=== PATIENT | male | born 1965 | race Asian ===

== ENCOUNTER 2017-05-17 17:57 | Emergency (ER) | payer OTHER ==
[~2017-05-17] VITALS: Ht 180.3 cm; Wt 80.7 kg
[2017-05-17 18:41] LABS: BASOPHILS % 0.4 % (0.0-1.0); EOSINOPHILS # (AUTO) 0.3 (0.0-0.4); EOSINOPHILS % 3.9 % (0.0-6.0); HEMATOCRIT 44.7 % (38.2-49.6); HEMOGLOBIN 15.6 g/dL (14.0-18.0); LYMPHOCYTES # (AUTO) 1.3 (1.0-3.2); LYMPHOCYTES % 16.1 % (18.0-39.1); MEAN CORPUSCULAR HEMOGLOBIN 30.8 pg (28-32); MEAN CORPUSCULAR HGB CONC 34.9 g/dL (31-35); MEAN CORPUSCULAR VOLUME 88.2 fL (81-99); MONOCYTES # (AUTO) 0.4 (0.2-0.8); MONOCYTES % 5.2 % (4.4-11.3); NEUTROPHILS # (AUTO) 6.1 (2.1-6.9); NEUTROPHILS % 74.3 % (38.7-80.0); PLATELET COUNT 165 x10e3/uL (140-360); RED BLOOD COUNT 5.07 x10e6/uL (4.3-5.7); RED CELL DISTRIBUTION WIDTH 12.2 % (11.7-14.4)
[2017-05-17 18:54] LABS: AMYLASE 72 U/L (25-125); LIPASE 65 U/L (8-78)
[2017-05-17 19:05] LABS: ALBUMIN/GLOBULIN RATIO 1.2 (0.8-2.0); ANION GAP 14.5 mmol/L (8-16); CALCIUM 9.3 mg/dL (8.4-10.2); CREATININE, SERUM 1.43 mg/dL (0.72-1.25); POTASSIUM 4.5 mmol/L (3.5-5.1)
[2017-05-17 20:07] LABS: BILIRUBIN,URINE NEGATIVE (NEGATIVE); CLARITY,URINE CLEAR (CLEAR); COLOR,URINE YELLOW (YELLOW); KETONES,URINE NEGATIVE (NEGATIVE); LEUKOCYTE ESTERASE ,URINE NEGATIVE (NEGATIVE); NITRITE,URINE NEGATIVE (NEGATIVE); PROTEIN,URINE DIPSTICK 3+ (NEGATIVE); URINE UROBILINOGEN 0.2 mg/dL (0.2 - 1)
[2017-05-17] MEDS ORDERED: SODIUM CHLORIDE 0.9% 1000ML 1,000 ML IV STA (20:08)
[2017-05-17] MEDS ORDERED: ONDANSETRON HCL INJ 2 MG/ML VIAL IV STA (20:08)
[2017-05-17] MEDS ORDERED: KETOROLAC TROMETHAMINE 30 MG/ML VIAL IV STA (20:08)
[2017-05-17 20:14] LABS: MUCUS,URINE MODERATE (RARE); RBC,URINE 0-5 /HPF (0-5); WBC,URINE (MAN) 0-5 /HPF (0-5)
[2017-05-17] MEDS ORDERED: LISINOPRIL 20 MG TAB PO ONE (21:30)
--- NOTE | 2017-05-17 21:59 | Diagnostic Imaging Report ---
EXAM: CT Abdomen and Pelvis WITHOUT contrast INDICATION: Renal stones COMPARISON: None. TECHNIQUE: Abdomen and pelvis were scanned utilizing a multidetector helical scanner from the lung base to the pubic symphysis without administration of IV contrast. Absence of intravenous contrast decreases sensitivity for detection of focal lesions and vascular pathology. Coronal and sagittal reformations were obtained. Stone protocol is performed. IV CONTRAST: None. ORAL CONTRAST: Water RADIATION DOSE: Total DLP: 403.36 mGy*cm Estimated effective dose: (DLP x 0.015 x size factor) mSv COMPLICATIONS: None FINDINGS: LINES and TUBES: None. LOWER THORAX: Unremarkable HEPATOBILIARY: No focal hepatic lesions. No biliary ductal dilation. GALLBLADDER: No radio-opaque stones or sludge. No wall thickening. SPLEEN: No splenomegaly. PANCREAS: No focal masses or ductal dilatation. ADRENALS: No adrenal nodules KIDNEYS/URETERS: No hydronephrosis. No cystic or solid mass lesions. Right-sided 3 mm nephrolithiasis in the inferior renal collecting system best seen on series 3, image 76 GI TRACT: No abnormal distention, wall thickening, or evidence of bowel obstruction. Appendix is normal. PELVIC ORGANS/BLADDER: Unremarkable. LYMPH NODES: No lymphadenopathy. VESSELS: There is mild atherosclerotic disease in the aorta and major arterial branches. PERITONEUM / RETROPERITONEUM: No free air or fluid. BONES: There are degenerative changes in the lumbar spine. SOFT TISSUES: Unremarkable. IMPRESSION: 1. Right sided 3 mm nephrolithiasis without hydronephrosis. Signed by: Dr. Nigel Valentin M.D. on 05/17/2017 9:55 PM
[2017-05-17] MEDS ORDERED: ULTRAM 50MG50 MG PO (22:12)
[2017-05-17] MEDS ORDERED: ZOFRAN ODT4 MG SL (22:12)
[2017-05-17 22:38] VITALS: BP 155/104
[2017-05-20] MEDS ORDERED: FENTANYL CITRATE/PF 100MCG/2 ML INJ ONE (17:07)
[2017-05-20] MEDS ORDERED: MIDAZOLAM HCL 2 MG/2 ML VIAL ONE (17:07)
== END 2017-05-17 22:44 | disposition home or self-care (01) ==
LOC: ER 17:57
DX: R10.31 Right lower quadrant pain (principal); I10 Essential (primary) hypertension; E11.9 Type 2 diabetes mellitus without complications; Z87.442 Personal history of urinary calculi
CPT/HCPCS: 36415; 74176; 80053; 81001; 82150; 83690; 85025; 87086; 99284; J1885; J2250; J2405; J7030

== ENCOUNTER 2021-07-08 15:22 | Inpatient (IN) | payer OTHER ==
[~2021-07-08] VITALS: Ht 175.3 cm; Wt 91.6 kg
[~2021-07-08 15:22] MED LIST: ULTRAM 50MG50 MG PO; ZOFRAN ODT4 MG SL
[2021-07-08 16:05] LABS: BASOPHILS % 0.6 % (0.0-1.0); EOSINOPHILS # (AUTO) 1.5 (0.0-0.4); EOSINOPHILS % 22.7 % (0.0-6.0); HEMATOCRIT 36.9 % (38.2-49.6); HEMOGLOBIN 12.2 g/dL (14.0-18.0); LYMPHOCYTES # (AUTO) 1.2 (1.0-3.2); LYMPHOCYTES % 17.6 % (18.0-39.1); MEAN CORPUSCULAR HEMOGLOBIN 29.5 pg (28-32); MEAN CORPUSCULAR HGB CONC 33.1 g/dL (31-35); MEAN CORPUSCULAR VOLUME 89.3 fL (81-99); MONOCYTES # (AUTO) 0.5 (0.2-0.8); MONOCYTES % 6.9 % (4.4-11.3); NEUTROPHILS # (AUTO) 3.5 (2.1-6.9); NEUTROPHILS % 52.1 % (38.7-80.0); PLATELET COUNT 200 x10e3/uL (140-360); RED BLOOD COUNT 4.13 x10e6/uL (4.3-5.7); RED CELL DISTRIBUTION WIDTH 12.6 % (11.7-14.4)
[2021-07-08 16:11] LABS: INR 0.87; PARTIAL THROMBOPLASTIN TIME 29.8 seconds (23.8-35.5); PROTHROMBIN TIME 12.7 seconds (11.9-14.5)
[2021-07-08 16:14] LABS: CLARITY,URINE HAZY (CLEAR); COLOR,URINE YELLOW (YELLOW)
[2021-07-08 16:15] LABS: KETONES,URINE NEGATIVE (NEGATIVE); LEUKOCYTE ESTERASE ,URINE NEGATIVE (NEGATIVE); NITRITE,URINE NEGATIVE (NEGATIVE); PROTEIN,URINE DIPSTICK >=300 (NEGATIVE); URINE UROBILINOGEN 0.2 mg/dL (0.2 - 1)
[2021-07-08 16:16] LABS: AMORPHOUS SEDIMENT,URINE FEW (FEW); BACTERIA,URINE FEW /HPF; EPITHELIAL CELLS,URINE FEW /LPF; MUCUS,URINE FEW (RARE)
[2021-07-08 16:23] LABS: ALBUMIN 3.2 g/dL (3.5-5.0); ALBUMIN/GLOBULIN RATIO 0.8 (0.8-2.0); ANION GAP 12.1 mmol/L (8-16); CALCIUM 8.9 mg/dL (8.4-10.2); CREATININE, SERUM 3.07 mg/dL (0.72-1.25); MAGNESIUM 1.9 MG/DL (1.3-2.1); POTASSIUM 5.1 mmol/L (3.5-5.1)
[2021-07-08 16:31] LABS: CREATINE KINASE MB 5.8 ng/mL (0-5.0)
[2021-07-08 16:32] LABS: EOSINOPHILS % (MANUAL) 21 % (0-7); LYMPHOCYTES % (MANUAL) 17 % (19-48); MONOCYTES % (MANUAL) 4 % (3.4-9.0); NEUTROPHILS % (MANUAL) 58 % (40-74); PLATELET ESTIMATE ADEQUATE; PLATELET MORPHOLOGY COMMENT NORMAL
[2021-07-08 16:33] LABS: RBC MORPHOLOGY COMMENT NORMAL
[2021-07-08] MEDS ORDERED: ONDANSETRON HCL INJ 2MG/ML 2ML 2 MG/ML VIAL IV PRN (17:00)
[2021-07-08] MEDS ORDERED: FUROSEMIDE INJ 10 MG/ML 4 ML VIAL IV ONE (17:30)
[2021-07-08 18:20] VITALS: BP 138/83
[2021-07-08 19:38] LABS: CREATINE KINASE MB 5.9 ng/mL (0-5.0)
[2021-07-08 20:00] VITALS: BP 128/87
[2021-07-08] MEDS ORDERED: LASIX20 MG PO (22:18)
[2021-07-08] MEDS ORDERED: HUMULIN R100 UNIT/2 SC (22:21)
[2021-07-08] MEDS ORDERED: LISINOPRIL20 MG PO (22:21)
[2021-07-08] MEDS ORDERED: HUMULIN N100 UNITS/ SC (22:21)
[2021-07-08] MEDS ORDERED: ASPIRIN81 MG PO (22:21)
[2021-07-08] MEDS ORDERED: LABETALOL HCL100 MG PO (22:21)
[2021-07-09] VITALS (8 sets, daily range): BP systolic 117–140; BP diastolic 74–89
[2021-07-09] MEDS ORDERED: ACETAMINOPHEN 325 MG TAB PO PRN ×2 (00:30→10:00)
[2021-07-09] MEDS ORDERED: DIPHENHYDRAMINE HCL 25 MG CAP PO PRN (00:30)
[2021-07-09 05:16] LABS: BASOPHILS # (AUTO) 0.1 (0.0-0.1); BASOPHILS % 0.7 % (0.0-1.0); EOSINOPHILS # (AUTO) 1.5 (0.0-0.4); EOSINOPHILS % 20.6 % (0.0-6.0); HEMOGLOBIN 12.2 g/dL (14.0-18.0); LYMPHOCYTES # (AUTO) 1.9 (1.0-3.2); LYMPHOCYTES % 26.1 % (18.0-39.1); MEAN CORPUSCULAR HEMOGLOBIN 29.8 pg (28-32); MEAN CORPUSCULAR VOLUME 90.5 fL (81-99); MONOCYTES # (AUTO) 0.6 (0.2-0.8); MONOCYTES % 8.2 % (4.4-11.3); NEUTROPHILS # (AUTO) 3.2 (2.1-6.9); NEUTROPHILS % 44.3 % (38.7-80.0); PLATELET COUNT 210 x10e3/uL (140-360); RED BLOOD COUNT 4.09 x10e6/uL (4.3-5.7); RED CELL DISTRIBUTION WIDTH 12.6 % (11.7-14.4)
[2021-07-09 05:37] LABS: CREATINE KINASE MB 4.9 ng/mL (0-5.0)
[2021-07-09 05:52] LABS: ALBUMIN 3.2 g/dL (3.5-5.0); ALBUMIN/GLOBULIN RATIO 0.8 (0.8-2.0); CALCIUM 9.2 mg/dL (8.4-10.2); CHOL/HDL RATIO 3.9 (3.9-4.7); CREATININE, SERUM 2.99 mg/dL (0.72-1.25)
[2021-07-09] MEDS ORDERED: SODIUM CHLORIDE 0.9% 250ML 250 ML ONE (09:01)
[2021-07-09] MEDS ORDERED: DOCUSATE SODIUM 100 MG CAP PO PRN (10:00)
[2021-07-09] MEDS: NPH, HUMAN INSULIN ISOPHANE 100 UNIT/1 ML 3ML VIAL SQ SCH ×2 (11:30→16:30)
[2021-07-09] MEDS: TRAMADOL HCL 50 MG TAB PO PRN (12:05)
[2021-07-09] MEDS: BENZONATATE 100 MG CAP PO SCH ×2 (15:00→21:00)
[2021-07-09 15:27] LABS: CREATINE KINASE MB 4.6 ng/mL (0-5.0)
[2021-07-09] MEDS: FAMOTIDINE 20 MG TAB PO SCH (16:30)
[2021-07-09] MEDS: LABETALOL HCL 100 MG TAB PO SCH (16:56)
[2021-07-09] MEDS: HEPARIN SOD (PORCINE) 5,000 UNIT/ML VIAL SC SCH (21:00)
[2021-07-09] MEDS ORDERED: DEXTROSE 50% SYRINGE 50 ML IV PRN (21:30)
[2021-07-09] MEDS: INSULIN REGULAR, HUMAN 100 UNIT/1 ML SQ SCH (21:48)
[2021-07-10] VITALS (9 sets, daily range): BP systolic 130–155; BP diastolic 68–100
[2021-07-10] MEDS: TRAMADOL HCL 50 MG TAB PO PRN
[2021-07-10] MEDS: FAMOTIDINE 20 MG TAB PO SCH ×2 (09:28→16:46)
[2021-07-10] MEDS: NPH, HUMAN INSULIN ISOPHANE 100 UNIT/1 ML 3ML VIAL SQ SCH ×3 (09:30→16:30)
[2021-07-10] MEDS: INSULIN REGULAR, HUMAN 100 UNIT/1 ML SQ SCH ×4 (09:30→20:47)
[2021-07-10] MEDS: BENZONATATE 100 MG CAP PO SCH ×3 (09:31→20:45)
[2021-07-10] MEDS: ASPIRIN 81 MG CHEW TAB PO SCH (09:31)
[2021-07-10] MEDS: LABETALOL HCL 100 MG TAB PO SCH ×2 (09:31→17:00)
[2021-07-10] MEDS: HEPARIN SOD (PORCINE) 5,000 UNIT/ML VIAL SC SCH ×2 (09:32→20:47)
[2021-07-10 16:05] LABS: BASOPHILS % 0.6 % (0.0-1.0); EOSINOPHILS # (AUTO) 1.4 (0.0-0.4); HEMATOCRIT 36.5 % (38.2-49.6); HEMOGLOBIN 11.7 g/dL (14.0-18.0); LYMPHOCYTES # (AUTO) 1.6 (1.0-3.2); LYMPHOCYTES % 25.8 % (18.0-39.1); MEAN CORPUSCULAR HEMOGLOBIN 29.4 pg (28-32); MEAN CORPUSCULAR HGB CONC 32.1 g/dL (31-35); MEAN CORPUSCULAR VOLUME 91.7 fL (81-99); MONOCYTES # (AUTO) 0.5 (0.2-0.8); MONOCYTES % 7.8 % (4.4-11.3); NEUTROPHILS # (AUTO) 2.8 (2.1-6.9); NEUTROPHILS % 43.6 % (38.7-80.0); PLATELET COUNT 184 x10e3/uL (140-360); RED BLOOD COUNT 3.98 x10e6/uL (4.3-5.7); RED CELL DISTRIBUTION WIDTH 12.7 % (11.7-14.4)
[2021-07-10 16:23] LABS: CALCIUM 8.9 mg/dL (8.4-10.2); CREATININE, SERUM 2.89 mg/dL (0.72-1.25)
[2021-07-10] MEDS: METHYLPREDNISOLONE SOD SUCC 40 MG/ML VIAL 1ML IV SCH (17:30)
[2021-07-10] MEDS: CEFTRIAXONE 1 GM in SODIUM CHLORIDE 0.9% 50ML 50 ML IV SCH (18:00)
[2021-07-10] MEDS: ALBUTEROL/IPRATROPIUM 3 ML NEB NEB SCH (19:28)
[2021-07-11] VITALS (7 sets, daily range): BP systolic 131–162; BP diastolic 74–92
[2021-07-11] MEDS: ALBUTEROL/IPRATROPIUM 3 ML NEB NEB SCH ×4 (00:12→18:35)
[2021-07-11] MEDS: TRAMADOL HCL 50 MG TAB PO PRN (00:49)
[2021-07-11 05:18] LABS: ALBUMIN 3.1 g/dL (3.5-5.0); ALBUMIN/GLOBULIN RATIO 0.8 (0.8-2.0); ANION GAP 12.9 mmol/L (8-16); CALCIUM 9.4 mg/dL (8.4-10.2); CREATININE, SERUM 3.14 mg/dL (0.72-1.25); POTASSIUM 4.9 mmol/L (3.5-5.1)
[2021-07-11] MEDS: METHYLPREDNISOLONE SOD SUCC 40 MG/ML VIAL 1ML IV SCH ×2 (05:52→17:34)
[2021-07-11 07:30] LABS: CREATININE,URINE RANDOM 42.21 mg/dL (63-166)
[2021-07-11 07:32] LABS: TOTAL PROTEIN, URINE 213.7 mg/dL (1-14)
[2021-07-11] MEDS: BENZONATATE 100 MG CAP PO SCH ×3 (07:53→20:37)
[2021-07-11] MEDS: FAMOTIDINE 20 MG TAB PO SCH ×2 (07:53→17:33)
[2021-07-11] MEDS: ASPIRIN 81 MG CHEW TAB PO SCH (07:53)
[2021-07-11] MEDS: NPH, HUMAN INSULIN ISOPHANE 100 UNIT/1 ML 3ML VIAL SQ SCH ×3 (08:14→16:42)
[2021-07-11] MEDS: INSULIN REGULAR, HUMAN 100 UNIT/1 ML SQ SCH ×3 (08:14→16:42)
[2021-07-11] MEDS: LABETALOL HCL 100 MG TAB PO SCH ×2 (08:14→17:34)
[2021-07-11] MEDS: HEPARIN SOD (PORCINE) 5,000 UNIT/ML VIAL SC SCH (08:15)
[2021-07-11] MEDS ORDERED: AZITHROMYCIN 250 MG TAB PO SCH (09:00)
[2021-07-11] MEDS: CEFTRIAXONE 1 GM in SODIUM CHLORIDE 0.9% 50ML 50 ML IV SCH (17:34)
[2021-07-11] MEDS ORDERED: CEPHALEXIN500 MG PO (20:08)
[2021-07-11] MEDS ORDERED: PREDNISONE20 MG PO (20:08)
[2021-07-11] MEDS ORDERED: Benzonatate PO (20:08)
[2021-07-11] MEDS ORDERED: ZITHROMAX500 MG PO (20:08)
== END 2021-07-11 21:09 | disposition home or self-care (01) | DRG 202 ==
LOC: ER 15:54 → ERHOLD 16:54 → MED/SURG2 18:06
PROVIDERS: ADMIT Internal Medicine; ATTEND Internal Medicine
DX: J20.9 Acute bronchitis, unspecified (principal); N17.0 Acute kidney failure with tubular necrosis; N18.4 Chronic kidney disease, stage 4 (severe); N17.9 Acute kidney failure, unspecified; I73.9 Peripheral vascular disease, unspecified; Z87.891 Personal history of nicotine dependence; E11.22 Type 2 diabetes mellitus with diabetic chronic kidney disease; I12.9 Hypertensive chronic kidney disease with stage 1 through stage 4 chronic kidney disease, or unspecified chronic kidney disease; Z79.899 Other long term (current) drug therapy; Z20.822 Contact with and (suspected) exposure to COVID-19
CPT/HCPCS: 36415; 71045; 80048; 80053; 80061; 81001; 82550; 82553; 82570; 82948; 83036; 83735; 83880; 83970; 84100; 84156; 84484; 84550; 85025; 85610; 85730; 93005; 93306; 94799; 99284; J0456; J0696; J1644; J1817; J1940; J2920; J7050; U0002

== ENCOUNTER 2022-08-07 07:55 | Inpatient (IN) | payer MEDICARE, OTHER ==
[~2022-08-07] VITALS: Ht 175.3 cm; Wt 91.6 kg
[~2022-08-07 07:55] MED LIST changes: +ASPIRIN81 MG PO; +Benzonatate PO; +CEPHALEXIN500 MG PO; +HUMULIN N100 UNITS/ SC; +HUMULIN R100 UNIT/2 SC; +LABETALOL HCL100 MG PO; +LASIX20 MG PO; +LISINOPRIL20 MG PO; +PREDNISONE20 MG PO; +ZITHROMAX500 MG PO
[2022-08-07] MEDS ORDERED: SODIUM CHLORIDE 0.9% 1000ML 2,650 ML IV SCH (08:45)
[2022-08-07] MEDS ORDERED: PIPERACILLIN/TAZOBACTAM 4.5 GM in SODIUM CHLORIDE 0.9% 100 ML IV ONE (08:45)
[2022-08-07] MEDS ORDERED: ACETAMINOPHEN 325 MG TAB PO ONE (08:45)
[2022-08-07] MEDS ORDERED: HYDRALAZINE HCL 25 MG TAB PO ONE (09:00)
[2022-08-07] MEDS ORDERED: LABETALOL HCL 100 MG TAB PO ONE (09:00)
[2022-08-07 09:09] LABS: BASOPHILS # (AUTO) 0.1 (0.0-0.1); BASOPHILS % 0.4 % (0.0-1.0); EOSINOPHILS # (AUTO) 0.1 (0.0-0.4); EOSINOPHILS % 0.5 % (0.0-6.0); HEMATOCRIT 34.7 % (38.2-49.6); HEMOGLOBIN 11.1 g/dL (14.0-18.0); LYMPHOCYTES # (AUTO) 0.8 (1.0-3.2); LYMPHOCYTES % 6.1 % (18.0-39.1); MEAN CORPUSCULAR HEMOGLOBIN 28.2 pg (28-32); MEAN CORPUSCULAR VOLUME 88.1 fL (81-99); MONOCYTES % 7.8 % (4.4-11.3); NEUTROPHILS # (AUTO) 11.2 (2.1-6.9); NEUTROPHILS % 84.7 % (38.7-80.0); PLATELET COUNT 160 x10e3/uL (140-360); RED BLOOD COUNT 3.94 x10e6/uL (4.3-5.7); RED CELL DISTRIBUTION WIDTH 12.7 % (11.7-14.4)
[2022-08-07 09:25] LABS: INR 1.09; PROTHROMBIN TIME 14.6 seconds (11.9-14.5)
[2022-08-07 09:26] LABS: PARTIAL THROMBOPLASTIN TIME 40.8 seconds (23.8-35.5)
[2022-08-07] MEDS ORDERED: ONDANSETRON HCL INJ 2MG/ML 2ML 2 MG/ML VIAL ONE (09:31)
[2022-08-07] MEDS ORDERED: ONDANSETRON HCL INJ 2MG/ML 2ML 2 MG/ML VIAL IV STA (09:31)
[2022-08-07 09:34] LABS: ALBUMIN 2.8 g/dL (3.5-5.0); ALBUMIN/GLOBULIN RATIO 0.6 (0.8-2.0); ANION GAP 16.9 mmol/L (8-16); CALCIUM 8.9 mg/dL (8.4-10.2); CREATININE, SERUM 3.85 mg/dL (0.72-1.25); POTASSIUM 3.9 mmol/L (3.5-5.1)
[2022-08-07] MEDS: VANCOMYCIN 300 ML IV SCH ×2 (09:38→23:02)
[2022-08-07] MEDS ORDERED: SODIUM CHLORIDE FLUSH 10 ML SYR INJ PRN (10:15)
[2022-08-07] MEDS ORDERED: HYDROCODONE/APAP 5MG-325MG TAB PO PRN ×2 (14:00→21:00)
[2022-08-07] MEDS: ONDANSETRON HCL INJ 2MG/ML 2ML 2 MG/ML VIAL IV PRN (16:52)
[2022-08-07 18:00] VITALS: BP 140/91
[2022-08-07 18:15] VITALS: BP 140/91
[2022-08-07] MEDS ORDERED: FISH OIL 1,0001 EAC7 PO (18:26)
[2022-08-07] MEDS ORDERED: GLYBURIDE5 MG PO (18:26)
[2022-08-07] MEDS ORDERED: PANTOPRAZOLE SO40 MG PO (18:26)
[2022-08-07] MEDS ORDERED: SODIUM BICARBO325 MG PO (18:26)
[2022-08-07] MEDS ORDERED: CALCITRIOL0.5 MCG PO (18:26)
[2022-08-07] MEDS ORDERED: NIACIN100 MG PO (18:26)
[2022-08-07] MEDS ORDERED: HYDRALAZINE HCL50 MG PO (18:26)
[2022-08-07] MEDS ORDERED: LINZESS145 MCG PO (18:26)
[2022-08-07] MEDS ORDERED: FOLIC ACID0.4 MG PO (18:26)
[2022-08-07] MEDS ORDERED: GABAPENTIN300 MG PO (18:26)
[2022-08-07] MEDS ORDERED: ATORVASTATIN CA40 MG PO (18:26)
[2022-08-07] MEDS ORDERED: LEFLUNOMIDE20 MG PO (18:26)
[2022-08-07] MEDS ORDERED: HUMALOG MI100 UNIT/2 SQ (18:28)
[2022-08-07] MEDS ORDERED: Vancomycin IV 1 GM VIAL ONE (22:00)
[2022-08-07] MEDS ORDERED: SODIUM CHLORIDE 0.9% 250ML 250 ML ONE (22:00)
[2022-08-07] MEDS ORDERED: DEXTROSE 50% SYRINGE 50 ML IV PRN (23:30)
[2022-08-07] MEDS: INSULIN LISPRO 100 UNIT/1 ML 3ML VIAL SQ SCH (23:30)
[2022-08-08] VITALS (7 sets, daily range): BP systolic 102–163; BP diastolic 62–91
[2022-08-08] MEDS: HYDROCODONE/APAP 10MG-325MG TAB PO PRN ×3 (05:56→21:27)
[2022-08-08 05:58] LABS: BASOPHILS # (AUTO) 0.1 (0.0-0.1); BASOPHILS % 0.4 % (0.0-1.0); EOSINOPHILS # (AUTO) 0.1 (0.0-0.4); EOSINOPHILS % 0.7 % (0.0-6.0); HEMATOCRIT 32.9 % (38.2-49.6); HEMOGLOBIN 10.7 g/dL (14.0-18.0); LYMPHOCYTES # (AUTO) 0.9 (1.0-3.2); LYMPHOCYTES % 7.1 % (18.0-39.1); MEAN CORPUSCULAR HEMOGLOBIN 28.2 pg (28-32); MEAN CORPUSCULAR HGB CONC 32.5 g/dL (31-35); MEAN CORPUSCULAR VOLUME 86.6 fL (81-99); MONOCYTES # (AUTO) 1.3 (0.2-0.8); MONOCYTES % 10.5 % (4.4-11.3); NEUTROPHILS # (AUTO) 9.7 (2.1-6.9); NEUTROPHILS % 80.8 % (38.7-80.0); PLATELET COUNT 175 x10e3/uL (140-360); RED CELL DISTRIBUTION WIDTH 12.8 % (11.7-14.4)
[2022-08-08 06:26] LABS: ALBUMIN 2.8 g/dL (3.5-5.0); ALBUMIN/GLOBULIN RATIO 0.6 (0.8-2.0); ANION GAP 17.7 mmol/L (8-16); CALCIUM 8.9 mg/dL (8.4-10.2); CREATININE, SERUM 3.98 mg/dL (0.72-1.25); POTASSIUM 3.7 mmol/L (3.5-5.1)
[2022-08-08] MEDS: INS LISP PRO/LISP HUMAN 75/25 100 UNITS/ML VIAL SC SCH ×2 (07:30→16:30)
[2022-08-08] MEDS: INSULIN LISPRO 100 UNIT/1 ML 3ML VIAL SQ SCH ×4 (07:30→21:00)
[2022-08-08] MEDS ORDERED: NON-FORMULARY MEDICATION (Leflunomide 20 MG) PO SCH (09:00)
[2022-08-08] MEDS ORDERED: GLYBURIDE 5 MG TAB PO SCH (09:00)
[2022-08-08] MEDS ORDERED: SODIUM BICARBONATE 650 MG TAB PO SCH (09:00)
[2022-08-08] MEDS: NIACIN 100 MG TAB PO SCH (09:00)
[2022-08-08] MEDS: LINACLOTIDE 145 MCG CAPSULE PO SCH (09:00)
[2022-08-08] MEDS ORDERED: CALCITRIOL 0.5 MCG CAP PO SCH (09:00)
[2022-08-08] MEDS: HYDRALAZINE HCL 25 MG TAB PO SCH ×2 (09:00→15:00)
[2022-08-08] MEDS: ASPIRIN 81 MG CHEW TAB PO SCH (09:21)
[2022-08-08] MEDS: OMEGA 3 POLYUNSAT FATTY ACIDS 1000 MG SOFTGEL PO SCH (09:21)
[2022-08-08] MEDS: GABAPENTIN 300 MG CAP PO SCH ×2 (09:21→17:15)
[2022-08-08] MEDS: CALCITRIOL 0.25 MCG CAP PO SCH (09:23)
[2022-08-08] MEDS: FOLIC ACID 1 MG TAB PO SCH (09:23)
[2022-08-08] MEDS: PANTOPRAZOLE SOD 40 MG TABEC PO SCH (09:24)
[2022-08-08] MEDS: SODIUM BICARBONATE 8.4% 150 ML in STERILE WATER IV SOLN 1,000 ML IV SCH (12:00)
[2022-08-08] MEDS: ACETAMINOPHEN 325 MG TAB PO PRN ×2 (12:25→21:25)
[2022-08-08] MEDS: ONDANSETRON HCL INJ 2MG/ML 2ML 2 MG/ML VIAL IV PRN (12:26)
[2022-08-08] MEDS: LABETALOL HCL 100 MG TAB PO SCH ×2 (12:28→17:00)
[2022-08-08] MEDS: SODIUM BICARBONATE 650 MG TAB PO SCH ×2 (16:03→21:13)
[2022-08-08] MEDS ORDERED: SODIUM CHLORIDE 0.9% 1000ML 1,000 ML IV ONE (17:30)
[2022-08-08] MEDS: ATORVASTATIN 40 MG TAB PO SCH (21:14)
[2022-08-09] VITALS (8 sets, daily range): BP systolic 116–189; BP diastolic 67–98
[2022-08-09] MEDS ORDERED: CLINDAMYCIN 600MG / 50ML 50 ML IV ONE (00:45)
[2022-08-09] MEDS: SODIUM BICARBONATE 8.4% 150 ML in STERILE WATER IV SOLN 1,000 ML IV SCH (02:12)
[2022-08-09] MEDS: CLINDAMYCIN 600MG / 50ML 50 ML IV SCH ×3 (05:16→20:46)
[2022-08-09 05:35] LABS: ALBUMIN 2.3 g/dL (3.5-5.0); ALBUMIN/GLOBULIN RATIO 0.5 (0.8-2.0); ANION GAP 19.3 mmol/L (8-16); CALCIUM 8.4 mg/dL (8.4-10.2); CREATININE, SERUM 4.21 mg/dL (0.72-1.25); POTASSIUM 3.3 mmol/L (3.5-5.1)
[2022-08-09] MEDS: INSULIN LISPRO 100 UNIT/1 ML 3ML VIAL SQ SCH ×4 (07:30→20:45)
[2022-08-09] MEDS: INS LISP PRO/LISP HUMAN 75/25 100 UNITS/ML VIAL SC SCH ×2 (07:30→17:22)
[2022-08-09] MEDS: ASPIRIN 81 MG CHEW TAB PO SCH (08:31)
[2022-08-09] MEDS: GABAPENTIN 300 MG CAP PO SCH ×2 (08:31→16:46)
[2022-08-09] MEDS: CALCITRIOL 0.25 MCG CAP PO SCH (08:31)
[2022-08-09] MEDS: FOLIC ACID 1 MG TAB PO SCH (08:31)
[2022-08-09] MEDS: HYDROCODONE/APAP 10MG-325MG TAB PO PRN ×4 (08:34→20:47)
[2022-08-09] MEDS: ONDANSETRON HCL INJ 2MG/ML 2ML 2 MG/ML VIAL IV PRN (08:35)
[2022-08-09] MEDS: PANTOPRAZOLE SOD 40 MG TABEC PO SCH (08:47)
[2022-08-09] MEDS: LINACLOTIDE 145 MCG CAPSULE PO SCH (08:47)
[2022-08-09] MEDS: OMEGA 3 POLYUNSAT FATTY ACIDS 1000 MG SOFTGEL PO SCH (08:47)
[2022-08-09] MEDS: SODIUM BICARBONATE 650 MG TAB PO SCH ×3 (08:47→20:45)
[2022-08-09] MEDS: NIACIN 100 MG TAB PO SCH (09:04)
[2022-08-09] MEDS: LABETALOL HCL 100 MG TAB PO SCH ×2 (09:05→16:39)
[2022-08-09] MEDS: BUMETANIDE INJ 0.25MG/ML 4ML VIAL IV SCH ×2 (10:43→20:44)
[2022-08-09] MEDS ORDERED: POTASSIUM CHLORIDE 20 MEQ TAB CR PO ONE (10:45)
[2022-08-09] MEDS ORDERED: SODIUM CHLORIDE 0.9% 250ML 250 ML ONE (10:47)
[2022-08-09] MEDS ORDERED: Vancomycin IV 1 GM in SODIUM CHLORIDE 0.9% 250ML 250 ML IV ONE (11:00)
[2022-08-09] MEDS: ATORVASTATIN 40 MG TAB PO SCH (20:45)
[2022-08-09] MEDS: ACETAMINOPHEN 325 MG TAB PO PRN (20:48)
[2022-08-10 01:20] VITALS: BP 154/69
[2022-08-10] MEDS: HYDROCODONE/APAP 10MG-325MG TAB PO PRN ×2 (05:08→21:07)
[2022-08-10] MEDS: CLINDAMYCIN 600MG / 50ML 50 ML IV SCH (05:09)
[2022-08-10 06:07] VITALS: BP 163/79
[2022-08-10 07:22] LABS: ALBUMIN 2.2 g/dL (3.5-5.0); ALBUMIN/GLOBULIN RATIO 0.5 (0.8-2.0); ANION GAP 19.2 mmol/L (8-16); CALCIUM 8.3 mg/dL (8.4-10.2); CREATININE, SERUM 4.79 mg/dL (0.72-1.25); POTASSIUM 3.2 mmol/L (3.5-5.1)
[2022-08-10] MEDS: INSULIN LISPRO 100 UNIT/1 ML 3ML VIAL SQ SCH ×4 (07:30→21:20)
[2022-08-10] MEDS: INS LISP PRO/LISP HUMAN 75/25 100 UNITS/ML VIAL SC SCH ×2 (07:30→16:30)
[2022-08-10] MEDS: PANTOPRAZOLE SOD 40 MG TABEC PO SCH (07:30)
[2022-08-10 08:44] VITALS: BP 126/81
[2022-08-10] MEDS: ASPIRIN 81 MG CHEW TAB PO SCH (09:00)
[2022-08-10] MEDS: OMEGA 3 POLYUNSAT FATTY ACIDS 1000 MG SOFTGEL PO SCH (09:00)
[2022-08-10] MEDS: NIACIN 100 MG TAB PO SCH (09:00)
[2022-08-10] MEDS: GABAPENTIN 300 MG CAP PO SCH ×2 (09:00→17:07)
[2022-08-10] MEDS: LABETALOL HCL 100 MG TAB PO SCH ×2 (09:00→17:07)
[2022-08-10] MEDS: CALCITRIOL 0.25 MCG CAP PO SCH (09:00)
[2022-08-10] MEDS: FOLIC ACID 1 MG TAB PO SCH (09:00)
[2022-08-10] MEDS: BUMETANIDE INJ 0.25MG/ML 4ML VIAL IV SCH (09:00)
[2022-08-10] MEDS: LINACLOTIDE 145 MCG CAPSULE PO SCH (09:00)
[2022-08-10] MEDS: SODIUM BICARBONATE 650 MG TAB PO SCH ×3 (09:00→21:08)
[2022-08-10] MEDS ORDERED: POTASSIUM CHLORIDE 10MEQ EA PO ONE ×2 (10:30→15:00)
[2022-08-10] MEDS ORDERED: POTASSIUM CHLORIDE 20 MEQ TAB CR PO ONE (11:00)
[2022-08-10 12:25] VITALS: BP 158/95
[2022-08-10] MEDS ORDERED: Vancomycin IV 1 GM in SODIUM CHLORIDE 0.9% 250ML 250 ML IV SCH (13:00)
[2022-08-10] MEDS: FUROSEMIDE INJ 10 MG/ML 4 ML VIAL IV SCH ×2 (14:10→21:07)
[2022-08-10 14:16] LABS: CREATININE,URINE RANDOM 51.68 mg/dL (63-166)
[2022-08-10 14:49] LABS: TOTAL PROTEIN, URINE 393.9 mg/dL (1-14)
[2022-08-10 16:29] VITALS: BP 162/91
[2022-08-10] MEDS: ACETAMINOPHEN 325 MG TAB PO PRN (18:38)
[2022-08-10 20:00] VITALS: BP 112/75
[2022-08-10] MEDS: ATORVASTATIN 40 MG TAB PO SCH (21:08)
[2022-08-11 01:43] VITALS: BP 123/64
[2022-08-11 04:00] VITALS: BP 101/53
[2022-08-11] MEDS: FUROSEMIDE INJ 10 MG/ML 4 ML VIAL IV SCH (05:12)
[2022-08-11 06:40] LABS: BASOPHILS % 0.4 % (0.0-1.0); EOSINOPHILS # (AUTO) 0.3 (0.0-0.4); EOSINOPHILS % 3.4 % (0.0-6.0); HEMATOCRIT 23.9 % (38.2-49.6); LYMPHOCYTES # (AUTO) 1.1 (1.0-3.2); LYMPHOCYTES % 11.6 % (18.0-39.1); MEAN CORPUSCULAR HEMOGLOBIN 27.7 pg (28-32); MEAN CORPUSCULAR HGB CONC 33.5 g/dL (31-35); MEAN CORPUSCULAR VOLUME 82.7 fL (81-99); MONOCYTES % 10.9 % (4.4-11.3); NEUTROPHILS # (AUTO) 6.6 (2.1-6.9); NEUTROPHILS % 72.5 % (38.7-80.0); PLATELET COUNT 161 x10e3/uL (140-360); RED BLOOD COUNT 2.89 x10e6/uL (4.3-5.7); RED CELL DISTRIBUTION WIDTH 12.8 % (11.7-14.4)
[2022-08-11 06:50] LABS: ALBUMIN 1.9 g/dL (3.5-5.0); ALBUMIN/GLOBULIN RATIO 0.4 (0.8-2.0); ANION GAP 18.1 mmol/L (8-16); CALCIUM 8.3 mg/dL (8.4-10.2); CREATININE, SERUM 4.99 mg/dL (0.72-1.25); POTASSIUM 3.1 mmol/L (3.5-5.1)
[2022-08-11] MEDS: INS LISP PRO/LISP HUMAN 75/25 100 UNITS/ML VIAL SC SCH (07:30)
[2022-08-11] MEDS: PANTOPRAZOLE SOD 40 MG TABEC PO SCH (07:30)
[2022-08-11] MEDS: INSULIN LISPRO 100 UNIT/1 ML 3ML VIAL SQ SCH (07:30)
[2022-08-11 08:43] VITALS: BP 120/60
[2022-08-11] MEDS: FOLIC ACID 1 MG TAB PO SCH (08:49)
[2022-08-11] MEDS: CALCITRIOL 0.25 MCG CAP PO SCH (08:49)
[2022-08-11] MEDS: GABAPENTIN 300 MG CAP PO SCH (08:49)
[2022-08-11] MEDS: ASPIRIN 81 MG CHEW TAB PO SCH (08:49)
[2022-08-11] MEDS: LINACLOTIDE 145 MCG CAPSULE PO SCH (08:55)
[2022-08-11] MEDS: NIACIN 100 MG TAB PO SCH (08:55)
[2022-08-11] MEDS: LABETALOL HCL 100 MG TAB PO SCH (08:57)
[2022-08-11] MEDS: SODIUM BICARBONATE 650 MG TAB PO SCH (08:57)
[2022-08-11] MEDS: OMEGA 3 POLYUNSAT FATTY ACIDS 1000 MG SOFTGEL PO SCH (08:57)
[2022-08-11 09:10] VITALS: BP 120/60
[2022-08-11] MEDS ORDERED: POTASSIUM CHLORIDE 20 MEQ TAB CR PO ONE (10:15)
[2022-08-11] MEDS ORDERED: FUROSEMIDE 40 MG TAB PO SCH (17:00)
== END 2022-08-11 11:25 | disposition left against medical advice (07) | DRG 871 ==
LOC: ER 08:27 → ERHOLD 10:06 → MED/SURG2 17:02
PROVIDERS: ADMIT Internal Medicine; ATTEND Internal Medicine
DX: A41.9 Sepsis, unspecified organism (principal); N17.0 Acute kidney failure with tubular necrosis; L02.611 Cutaneous abscess of right foot; N18.4 Chronic kidney disease, stage 4 (severe); M84.477A Pathological fracture, right toe(s), initial encounter for fracture; E11.69 Type 2 diabetes mellitus with other specified complication; M19.071 Primary osteoarthritis, right ankle and foot; E11.22 Type 2 diabetes mellitus with diabetic chronic kidney disease; I12.9 Hypertensive chronic kidney disease with stage 1 through stage 4 chronic kidney disease, or unspecified chronic kidney disease; R00.0 Tachycardia, unspecified; E11.621 Type 2 diabetes mellitus with foot ulcer; L97.519 Non-pressure chronic ulcer of other part of right foot with unspecified severity; E11.51 Type 2 diabetes mellitus with diabetic peripheral angiopathy without gangrene; E11.319 Type 2 diabetes mellitus with unspecified diabetic retinopathy without macular edema; E78.5 Hyperlipidemia, unspecified; E86.0 Dehydration; E11.21 Type 2 diabetes mellitus with diabetic nephropathy; E11.42 Type 2 diabetes mellitus with diabetic polyneuropathy; Z79.4 Long term (current) use of insulin; Z79.82 Long term (current) use of aspirin; Z86.73 Personal history of transient ischemic attack (TIA), and cerebral infarction without residual deficits; Z20.822 Contact with and (suspected) exposure to COVID-19
CPT/HCPCS: 0223U; 36415; 71045; 80053; 80202; 81050; 82570; 82948; 83036; 83605; 84156; 84443; 85025; 85610; 85730; 87040; 87071; 87186; 87205; 93925; 99252; 99284; J0692; J1815; J1940; J2405; J2543; J7030; J7050